=== PATIENT | female | born 1950 | race Caucasian/White ===

== ENCOUNTER 2022-07-08 10:07 | Outpatient (CLI) | payer OTHER ==
[~2022-07-08 10:07] MED LIST: MAXIDE
== END 2022-07-08 10:17 | disposition home or self-care (01) ==
LOC: MAMO-SONO 10:07
PROVIDERS: ATTEND General Practice
DX: Z12.31 Encounter for screening mammogram for malignant neoplasm of breast (principal); N64.4 Mastodynia

== ENCOUNTER 2022-07-12 13:10 | Outpatient (CLI) | payer OTHER | END 2022-07-12 13:11 | disposition home or self-care (01) | LOC: NUCLEAR 13:10 | PROVIDERS: ATTEND General Practice | DX: M81.0 Age-related osteoporosis without current pathological fracture (principal) ==

== ENCOUNTER 2024-04-05 09:07 | Outpatient (CLI) | payer OTHER | END 2024-04-05 09:14 | disposition home or self-care (01) | LOC: SONOGRAMA 09:07 | PROVIDERS: ATTEND Internal Medicine Endocrinology, Diabetes & Metabolism | DX: E04.1 Nontoxic single thyroid nodule (principal) ==

== ENCOUNTER 2024-07-23 09:49 | Outpatient (CLI) | payer OTHER | END 2024-07-23 09:54 | disposition home or self-care (01) | LOC: MRI 09:49 | PROVIDERS: ATTEND Anesthesiology | DX: M47.817 Spondylosis without myelopathy or radiculopathy, lumbosacral region (principal); M96.1 Postlaminectomy syndrome, not elsewhere classified | CPT/HCPCS: 72148 ==